=== PATIENT | female | born 1995 | race Caucasian/White ===

== ENCOUNTER 2018-03-20 07:02 | Emergency (ER) | payer OTHER ==
[~2018-03-20] VITALS: Ht 170.2 cm; Wt 97.5 kg
[2018-03-20] MEDS ORDERED: IV NORMAL SALINE 1000ML BAG 1,000 ML IV SCH (07:21)
--- NOTE | 2018-03-20 07:27 | PHYS DOC ---
Past Medical History Past Medical History: No Pertinent History Past Surgical History: Cholecystectomy, Tonsillectomy Additional Past Surgical Histo: hernia, ankle Alcohol Use: None Drug Use: None Adult General Chief Complaint Chief Complaint: NAUSEA/VOMITING/DIARRHA HPI HPI Patient is a 22-year-old female who presents to the emergency department for evaluation. She states that at about 3 PM yesterday afternoon, she had relatively sudden onset of a left-sided headache, accompanied by photophobia, and several episodes of vomiting. She has not had any fevers, chills, neck stiffness, vision changes, numbness, or weakness. She has not had any diarrhea or abdominal pain. She states that as a child she used to get migraine headaches , but has not had a headache in about 10 years. She is uncertain if the current headache is similar to her prior migraine headaches or not. She is not currently taking any migraine medication. She has seen headache doctor is in the past for headaches, however. There are no alleviating or exacerbating factors to the patient's symptoms, except as noted above. Review of Systems Review of Systems Constitutional: Denies fever or chills [] Eyes: Denies change in visual acuity, redness, or eye pain [] HENT: Denies nasal congestion or sore throat [] Respiratory: Denies cough or shortness of breath [] Cardiovascular: The patient denies any shortness of breath, chest pain, palpitations, or orthopnea [] GI: Denies abdominal pain, bloody stools or diarrhea [] : Denies dysuria or hematuria [] Musculoskeletal: Denies back pain or joint pain [] Integument: Denies rash or skin lesions [] Neurologic: Denies focal weakness or sensory changes [] Endocrine: Denies polyuria or polydipsia [] All other systems were reviewed and found to be within normal limits, except as documented in this note. Current Medications Current Medications Current Medications Medications (Trade) Dose Ordered Sig/Ti Start Time Stop Time Status Last Admin Dose Admin Diphenhydramine HCl (Benadryl) 50 mg 1X ONCE 03/20/18 07:30 03/20/18 07:31 DC 03/20/18 07:52 50 MG Ketorolac Tromethamine (Toradol 30mg Vial) 30 mg 1X ONCE 03/20/18 07:30 03/20/18 07:31 DC 03/20/18 07:52 30 MG Prochlorperazine Edisylate (Compazine) 10 mg 1X ONCE 03/20/18 07:30 03/20/18 07:31 DC 03/20/18 07:52 10 MG Sodium Chloride 1,000 ml @ 1,000 mls/hr Q1H 03/20/18 07:21 03/20/18 08:20 DC 03/20/18 07:52 1,000 MLS/HR Allergies Allergies Allergies Coded Allergies Type Severity Reaction Last Updated Verified No Known Drug Allergies 03/20/18 No Physical Exam Physical Exam PHYSICAL EXAM: CONSTITUTIONAL: Well developed, well nourished HEAD: normocephalic, atraumatic EENT: PERRL, EOMI. photophobia is present. Conjunctivae normal color, sclerae non-icteric; moist mucous membranes. NECK: Supple, non-tender; no meningismus. LUNGS: Lungs CTA, breathing even and unlabored. Normal air movement. HEART: Regular rate and rhythm, no murmur CHEST: No deformity; non-tender ABDOMEN: The abdomen is soft, and non-tender, no masses or bruits. EXTREM: Normal ROM; no deformity, no calf tenderness. Normal pulses palpable in all extremities. There is no pedal edema. SKIN: No rash; no diaphoresis NEURO: Alert; normal speech and cognition; CN's grossly intact; strength grossly intact without focal deficit. BACK: No CVA TTP. Current Patient Data Vital Signs Vital Signs Date Time Temp Pulse Resp B/P (MAP) Pulse Ox O2 Delivery O2 Flow Rate FiO2 03/20/18 07:05 97.5 82 18 117/77 (90) 100 Room Air 97.5 Lab Values Laboratory Tests Test 03/20/18 07:08 03/20/18 07:30 POC Urine HCG, Qualitative Hcg negative (Negative) White Blood Count 9.2 x10^3/uL (4.0-11.0) Red Blood Count 5.09 x10^6/uL (3.50-5.40) Hemoglobin 12.2 g/dL (12.0-15.5) Hematocrit 37.0 % (36.0-47.0) Mean Corpuscular Volume 73 fL (79-100) L Mean Corpuscular Hemoglobin 24 pg (25-35) L Mean Corpuscular Hemoglobin Concent 33 g/dL (31-37) Red Cell Distribution Width 14.9 % (11.5-14.5) H Platelet Count 163 x10^3/uL (140-400) Neutrophils (%) (Auto) 74 % (31-73) H Lymphocytes (%) (Auto) 18 % (24-48) L Monocytes (%) (Auto) 7 % (0-9) Eosinophils (%) (Auto) 1 % (0-3) Basophils (%) (Auto) 1 % (0-3) Neutrophils # (Auto) 6.8 x10^3uL (1.8-7.7) Lymphocytes # (Auto) 1.7 x10^3/uL (1.0-4.8) Monocytes # (Auto) 0.6 x10^3/uL (0.0-1.1) Eosinophils # (Auto) 0.1 x10^3/uL (0.0-0.7) Basophils # (Auto) 0.1 x10^3/uL (0.0-0.2) Sodium Level 140 mmol/L (136-145) Potassium Level 3.7 mmol/L (3.5-5.1) Chloride Level 104 mmol/L (98-107) Carbon Dioxide Level 25 mmol/L (21-32) Anion Gap 11 (6-14) Blood Urea Nitrogen 8 mg/dL (7-20) Creatinine 0.8 mg/dL (0.6-1.0) Estimated GFR (Cockcroft-Gault) 88.1 Glucose Level 103 mg/dL (70-99) H Calcium Level 9.5 mg/dL (8.5-10.1) Laboratory Tests 03/20/18 07:30 Laboratory Tests 03/20/18 07:30 EKG EKG [] Radiology/Procedures Radiology/Procedures [PROCEDURE: CT HEAD WO CONTRAST CT of the head without contrast, 03/20/2018: HISTORY: Headache, nausea and vomiting The ventricles are within normal limits in size. There is no shift of the midline structures. There is no evidence of acute intracranial hemorrhage or mass effect. IMPRESSION: No acute intracranial abnormality is detected. ] Course & Med Decision Making Course & Med Decision Making Pertinent Labs and Imaging studies reviewed. (See chart for details) [8:20 AM: The patient's condition has significantly improved. Her headache has almost completely resolved and she is feeling much better.I discussed doing a lumbar puncture with the patient. We discussed the limitations of CT in definitively ruling out subarachnoid hemorrhage, or ruling out meningitis, I discussed the potential life-threatening nature of these diagnoses. The patient expressed verbal understanding of the risks involved in potentially missing these diagnoses. After considering the risks/benefits of lumbar puncture, and answering all questions about the procedure, the patient declined to undergo a lumbar puncture. The patient was mentally competent, and all questions were addressed. I stressed the need to return to the emergency department for worsening symptoms, or if the patient is willing to undergo further evaluation. The patient expressed verbal understanding. ] The patient does have a primary care physician she follows up with and I encouraged her to arrange a follow-up appointment for further evaluation and treatment. Dragon Disclaimer Dragon Disclaimer This electronic medical record was generated, in whole or in part, using a voice recognition dictation system. Departure Departure Impression: Primary Impression: Migraine headache Disposition: 01 HOME, SELF-CARE Condition: STABLE Patient Instructions: Migraine Headache Scripts Sumatriptan Succinate (IMITREX) 50 Mg Tablet 1 TAB PO UD, #10 TAB 1 Refill 1 tablet at the onset of migraine headache. May repeat in one hour. Max 200 mg per 24 hours. Prov: CAROLINA DELGADILLO MD 03/20/18 CAROLINA DELGADILLO MD Mar 20, 2018 07:27
[2018-03-20] MEDS ORDERED: diphenhydrAMINE HCL 25 MG CAPSULE PO ONE (07:30)
[2018-03-20] MEDS ORDERED: KETOROLAC 30 MG/ML VIAL. IV ONE (07:30)
[2018-03-20] MEDS ORDERED: PROCHLORPERAZINE 10 MG/2 ML VIAL. IV ONE (07:30)
[2018-03-20 07:43] LABS: BASO # 0.1 x10^3/uL (0.0-0.2); BASO % 1 % (0-3); EOS # 0.1 x10^3/uL (0.0-0.7); EOS % 1 % (0-3); HEMOGLOBIN 12.2 g/dL (12.0-15.5); LYMPH # 1.7 x10^3/uL (1.0-4.8); LYMPH % 18 % (24-48); MEAN CORPUSCULAR HEMOGLOBIN 24 pg (25-35); MEAN CORPUSCULAR HGB CONC 33 g/dL (31-37); MEAN CORPUSCULAR VOLUME 73 fL (79-100); MONO # 0.6 x10^3/uL (0.0-1.1); MONO % 7 % (0-9); NEUT # 6.8 x10^3uL (1.8-7.7); NEUT % 74 % (31-73); PLATELET COUNT 163 x10^3/uL (140-400); RED BLOOD COUNT 5.09 x10^6/uL (3.50-5.40); RED CELL DISTRIBUTION WIDTH 14.9 % (11.5-14.5); WHITE BLOOD COUNT 9.2 x10^3/uL (4.0-11.0)
[2018-03-20 07:51] LABS: CALCIUM 9.5 mg/dL (8.5-10.1); CREATININE 0.8 mg/dL (0.6-1.0); GFR 88.1; POTASSIUM 3.7 mmol/L (3.5-5.1)
--- NOTE | 2018-03-20 08:02 | RAD ---
CT of the head without contrast, 03/20/2018: HISTORY: Headache, nausea and vomiting The ventricles are within normal limits in size. There is no shift of the midline structures. There is no evidence of acute intracranial hemorrhage or mass effect. IMPRESSION: No acute intracranial abnormality is detected. RS Compliance Statement: One or more of the following individualized dose reduction techniques were utilized for this examination: 1. Automated exposure control 2. Adjustment of the mA and/or kV according to patient size 3. Use of iterative reconstruction technique Electronically signed by: Silvano Anderson MD (03/20/2018 7:58 AM) [facility]
[2018-03-20 08:22] VITALS: BP 102/56
[2018-03-20] MEDS ORDERED: SUMA50TA3 PO (08:26)
== END 2018-03-20 08:36 | disposition home or self-care (01) ==
LOC: ER 07:02
DX: G43.909 Migraine, unspecified, not intractable, without status migrainosus (principal); R11.2 Nausea with vomiting, unspecified
CPT/HCPCS: 36415; 70450; 80048; 81025; 85025; 96361; 96374; 96375; 99284; J0780; J1885; J7030; Q0163

== ENCOUNTER 2019-10-13 14:24 | Emergency (ER) | payer OTHER ==
[~2019-10-13] VITALS: Ht 172.7 cm; Wt 111.0 kg
[~2019-10-13 14:24] MED LIST: SUMA50TA3 PO
[2019-10-13 14:37] VITALS: BP 144/100
[2019-10-13] MEDS ORDERED: NAPROXEN 500 MG TABLET PO STA (14:54)
--- NOTE | 2019-10-13 14:57 | PHYS DOC ---
Past Medical History Past Medical History: No Pertinent History Past Surgical History: Cholecystectomy, Tonsillectomy Additional Past Surgical Histo: UMBILICAL HERNIA, LEFT FOOT HARDWARE, club feet correction Smoking Status: Never Smoker Alcohol Use: None Drug Use: None General Adult EDM: Chief Complaint: FOOT INJURY PAIN HPI: HPI: Patient is a 24 year old female, accompanied by her significant other, who presents to the ER with complaints of left foot redness, pain, and swelling for the last week. She denies any known injury, numbness, tingling, drainage, or fever. Pt states that the pain is worse with weight bearing but is a constant throbbing sensation. She currently rates her pain a 8/10 on the pain she denies taking any medication for relief of her pain prior to arrival today. Review of Systems: Review of Systems: Constitutional: Denies fever or chills. [] Musculoskeletal: See HPI Integument: Denies rash; See HPI [] Neurologic: Denies headache, focal weakness or sensory changes. [] Psychiatric: Denies depression or anxiety. [] Heart Score: Risk Factors: Risk Factors: DM, Current or recent (<one month) smoker, HTN, HLP, family history of CAD, obesity. Risk Scores: Score 0 - 3: 2.5% MACE over next 6 weeks - Discharge Home Score 4 - 6: 20.3% MACE over next 6 weeks - Admit for Clinical Observation Score 7 - 10: 72.7% MACE over next 6 weeks - Early Invasive Strategies Allergies: Allergies: Allergies Coded Allergies Type Severity Reaction Last Updated Verified No Known Drug Allergies 03/20/18 No Physical Exam: PE: Constitutional: Well developed, well nourished, no acute distress, non-toxic appearance, obese. [] HENT: Normocephalic, atraumatic, bilateral external ears normal, nose normal. [] Eyes: PERRLA, EOMI, conjunctiva normal, no discharge. [] Neck: Normal range of motion, no stridor. [] Cardiovascular:Heart rate regular rhythm Lungs & Thorax: Respirations even and unlabored, no retractions, no respiratory distress Skin: Warm, dry; erythema, warmth, redness, and 1+ edema noted to left midfoot consistent with gouty arthritis Extremities: Left foot: No crepitus, no obvious deformity, no bruising, no cyanosis, ROM intact, 1+ edema and erythema to midfoot. Neurologic: Alert and oriented X 3, no focal deficits noted. [] Psychologic: Affect normal, judgement normal, mood normal. [] Current Patient Data: Vital Signs: Vital Signs Date Time Temp Pulse Resp B/P (MAP) Pulse Ox O2 Delivery O2 Flow Rate FiO2 10/13/19 14:37 98.8 94 18 144/100 (115) 96 Room Air 98.8 EKG: EKG: [] Radiology/Procedures: Radiology/Procedures: PROCEDURE: FOOT LEFT 3V Left foot x-rays 3 views HISTORY: Left foot pain and swelling for one week. History of prior bone grafting to the foot. FINDINGS: Bone demineralization may indicate osteopenia or osteoporosis. There is mild diffuse soft tissue edema and swelling of the foot. 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 Prominent posterior talus Stieda process. No fracture. No dislocation. No arthritic change. IMPRESSION: No acute osseous injury. Diffuse soft tissue edema and swelling. See above. [] Course & Med Decision Making: Course & Med Decision Making Pertinent Labs and Imaging studies reviewed. (See chart for details) [] Dragon Disclaimer: Dragon Disclaimer: This electronic medical record was generated, in whole or in part, using a voice recognition dictation system. Departure Departure Impression: Primary Impression: Acute gout of left foot Qualified Codes: M10.9 - Gout, unspecified Disposition: 01 HOME, SELF-CARE Condition: STABLE Referrals: MAEVE GARCIA MD (PCP) Patient Instructions: Diet - Purine Restricted, Gout, [id number] Additional Instructions: Fill the prescriptions and use them as directed. Follow the diet instructions provided. Follow-up with your primary care doctor if symptoms persist, return to the ER if symptoms worsen or you develop a fever. Scripts Prednisone (PREDNISONE) 50 Mg Tablet 1 TAB PO DAILY for 5 Days, #5 TAB 0 Refills Prov: BRENNAN PAULSON APRN 10/13/19 Naproxen (NAPROXEN) 500 Mg Tablet 1 TAB PO BID PRN for PAIN for 10 Days, #20 TAB 0 Refills Prov: BRENNAN PAULSON APRN 10/13/19 Justicifation of Admission Dx: Justifications for Admission: Justification of Admission Dx: N/A BRENNAN PAULSON APRN Oct 13, 2019 14:57
--- NOTE | 2019-10-13 15:14 | RAD ---
Left foot x-rays 3 views HISTORY: Left foot pain and swelling for one week. History of prior bone grafting to the foot. FINDINGS: Bone demineralization may indicate osteopenia or osteoporosis. There is mild diffuse soft tissue edema and swelling of the foot. 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 Prominent posterior talus Stieda process. No fracture. No dislocation. No arthritic change. IMPRESSION: No acute osseous injury. Diffuse soft tissue edema and swelling. See above. Electronically signed by: Vitaliy Ivy MD (10/13/2019 3:11 PM) [facility]
[2019-10-13] MEDS ORDERED: PRED50TA PO (16:14)
[2019-10-13] MEDS ORDERED: NAPR-514 PO (16:14)
== END 2019-10-13 16:23 | disposition home or self-care (01) ==
LOC: ER 14:24
DX: M10.9 Gout, unspecified (principal); M79.672 Pain in left foot; R20.0 Anesthesia of skin; R60.0 Localized edema; Z90.89 Acquired absence of other organs; Z90.49 Acquired absence of other specified parts of digestive tract; Z98.890 Other specified postprocedural states
CPT/HCPCS: 73630; 81025; 99283

== ENCOUNTER → 2020-07-14 | Outpatient (CLI) | payer OTHER ==
[~2020-07-14] MED LIST changes: +NAPR-514 PO; +PRED50TA PO
[2020-07-14 11:30] LABS: HEMOGLOBIN 10.5 g/dL (12.0-15.5); RED BLOOD COUNT 4.99 x10^6/uL (3.50-5.40); RED CELL DISTRIBUTION WIDTH 16.7 % (11.5-14.5); WHITE BLOOD COUNT 6.7 x10^3/uL (4.0-11.0)
[2020-07-14 11:57] LABS: FREE T4 0.97 ng/dL (0.76-1.46); THYROID STIM HORMONE (TSH) 0.382 uIU/mL (0.358-3.74)
[2020-07-15 17:19] LABS: RUBELLA IGG ANTIBODY 2.76 index (Immune >0.99)
== END ==
LOC: LAB 10:54
PROVIDERS: ATTEND Obstetrics & Gynecology
DX: Z34.91 Encounter for supervision of normal pregnancy, unspecified, first trimester (principal); Z3A.00 Weeks of gestation of pregnancy not specified
CPT/HCPCS: 36415; 84439; 84443; 85027; 86592; 86703; 86762; 86787; 86803; 86850; 86900; 86901; 87340

== ENCOUNTER → 2020-07-14 | Outpatient (CLI) | payer OTHER | LOC: SPEC 10:21 | PROVIDERS: ATTEND Obstetrics & Gynecology | DX: Z34.91 Encounter for supervision of normal pregnancy, unspecified, first trimester (principal); Z3A.00 Weeks of gestation of pregnancy not specified | CPT/HCPCS: 87086; 87491; 87591 ==

== ENCOUNTER 2020-07-21 13:31 | Emergency (ER) | payer OTHER ==
[~2020-07-21] VITALS: Ht 175.3 cm; Wt 112.0 kg
[2020-07-21 14:30] LABS: BASO # 0.1 x10^3/uL (0.0-0.2); BASO % 1 % (0-3); EOS # 0.2 x10^3/uL (0.0-0.7); EOS % 2 % (0-3); HEMATOCRIT 33.8 % (36.0-47.0); HEMOGLOBIN 10.7 g/dL (12.0-15.5); LYMPH # 2.9 x10^3/uL (1.0-4.8); LYMPH % 34 % (24-48); MEAN CORPUSCULAR HEMOGLOBIN 21 pg (25-35); MEAN CORPUSCULAR HGB CONC 32 g/dL (31-37); MEAN CORPUSCULAR VOLUME 67 fL (79-100); MONO # 0.7 x10^3/uL (0.0-1.1); MONO % 9 % (0-9); NEUT # 4.6 x10^3/uL (1.8-7.7); NEUT % 54 % (31-73); PLATELET COUNT 190 x10^3/uL (140-400); RED BLOOD COUNT 5.04 x10^6/uL (3.50-5.40); RED CELL DISTRIBUTION WIDTH 17.3 % (11.5-14.5); WHITE BLOOD COUNT 8.6 x10^3/uL (4.0-11.0)
[2020-07-21 14:47] LABS: BILIRUBIN,URINE NEGATIVE (NEG); CLARITY,URINE CLEAR; COLOR,URINE YELLOW; NITRITE,URINE NEGATIVE (NEG); PROTEIN,URINE NEGATIVE (NEG-TRACE); UROBILINOGEN,URINE 0.2 mg/dL (0.2 mg/dL)
[2020-07-21 14:55] LABS: BACTERIA,URINE MODERATE /HPF (0-FEW)
--- NOTE | 2020-07-21 15:38 | RAD ---
Obstetric ultrasound less than 14 weeks with transvaginal imaging: Reason for examination: Vaginal bleeding and . Transabdominally, the uterus and adnexa are poorly visualized since the bladder is empty. Transvaginally, the uterus measures 9 x 7 x 7 cm in greatest dimension. There does appear to be a axel rine fibroid in the left side of the uterus measuring 4.8 x 3.6 cm in greatest dimension. Single viab le intrauterine gestation is identified with a cardiac rate of 66 bpm. Yolk sac is identified. The ou ter chorion and in the amnion are visible. There is a normal contour to the gestational sac. Subchori onic hemorrhage is not identified. [place]-rump length is 4.7 mm corresponding to gestational age of 6 weeks 1 day. The right ovary measures 2.7 x 1.8 x 2.1 cm in greatest dimension and shows good vascular flow. The left ovary is not identified. No free fluid is seen. IMPRESSION: Single viable intrauterine gestation with a mean gestational age of 6 weeks 1 day and an estimated da te of confinement of 03/15/2021. This is approximately 13 days younger than clinical dates. 4.8 x 3.6 cm fibroid in the left side of the uterus. Electronically signed by: Gypsy Garcia MD (07/21/2020 3:36 PM) [facility]
[2020-07-21 15:45] VITALS: BP 115/75
[2020-07-21 15:54] LABS: PLT ESTIMATE ADEQUATE (ADEQUATE)
[2020-07-21 15:55] LABS: ANISOCYTOSIS SLIGHT; HYPOCHROMIA MOD; MICROCYTOSIS MOD; POIKILOCYTOSIS SLIGHT
[2020-07-21 15:56] LABS: OVALOCYTES FEW
--- NOTE | 2020-07-21 16:03 | ED.ADGEN ---
Past Medical History Past Medical History: Anxiety, Depression Past Surgical History: Cholecystectomy, Tonsillectomy Additional Past Surgical Histo: UMBILICAL HERNIA, LEFT FOOT HARDWARE, club feet correction Smoking Status: Never Smoker Alcohol Use: None Drug Use: None General Adult EDM: Chief Complaint: VAGINAL BLEEDING HPI: HPI: Patient is a 25 year old female, accompanied by her , who presents emergency department with complaints of vaginal bleeding and passing a dime sized blood clot approximately 30 minutes prior to arrival. Patient reports she is currently 5 weeks , she is 2, para 1. Her last menstrual cycle was on May 26, 2020. She denies any abnormal vaginal discharge prior to the onset of the bleeding. She denies any dysuria, hematuria, increased urinary frequency, fever, cough, back pain, abdominal pain, cough, shortness of breath, nausea, vomiting, or diarrhea. Patient reports concerned that she is having a miscarriage is tearful and crying. Currently denies any pain. Review of Systems: Review of Systems: Complete ROS is negative unless otherwise noted in HPI. Allergies: Allergies: Allergies Coded Allergies Type Severity Reaction Last Updated Verified No Known Drug Allergies 03/20/18 No Physical Exam: PE: See Above Constitutional: Well developed, well nourished, no acute distress, non-toxic appearance, obese. [] HENT: Normocephalic, atraumatic, bilateral external ears normal, nose normal. [] Eyes: PERRLA, EOMI, conjunctiva normal, no discharge. [] Neck: Normal range of motion, no stridor. [] Cardiovascular:Heart rate regular rhythm Lungs & Thorax: Respirations even and unlabored, no retractions, no respiratory distress Abdomen: soft, no tenderness Skin: Warm, dry, no erythema, no rash. [] Extremities: No cyanosis, ROM intact, no edema. [] Neurologic: Alert and oriented X 3, no focal deficits noted. [] Psychologic: Affect anxious judgement normal, mood normal. [] Current Patient Data: Labs: Laboratory Tests Test 07/21/20 14:19 07/21/20 14:35 White Blood Count 8.6 x10^3/uL (4.0-11.0) Red Blood Count 5.04 x10^6/uL (3.50-5.40) Hemoglobin 10.7 g/dL (12.0-15.5) L Hematocrit 33.8 % (36.0-47.0) L Mean Corpuscular Volume 67 fL (79-100) L Mean Corpuscular Hemoglobin 21 pg (25-35) L Mean Corpuscular Hemoglobin Concent 32 g/dL (31-37) Red Cell Distribution Width 17.3 % (11.5-14.5) H Platelet Count 190 x10^3/uL (140-400) Neutrophils (%) (Auto) 54 % (31-73) Lymphocytes (%) (Auto) 34 % (24-48) Monocytes (%) (Auto) 9 % (0-9) Eosinophils (%) (Auto) 2 % (0-3) Basophils (%) (Auto) 1 % (0-3) Neutrophils # (Auto) 4.6 x10^3/uL (1.8-7.7) Lymphocytes # (Auto) 2.9 x10^3/uL (1.0-4.8) Monocytes # (Auto) 0.7 x10^3/uL (0.0-1.1) Eosinophils # (Auto) 0.2 x10^3/uL (0.0-0.7) Basophils # (Auto) 0.1 x10^3/uL (0.0-0.2) Platelet Estimate Pending Maternal Serum HCG Beta Subunit 87914 mIU/mL (0-5) H Urine Collection Type Unknown Urine Color Yellow Urine Clarity Clear Urine pH 6.0 (<5.0-8.0) Urine Specific [place] 1.015 (1.000-1.030) Urine Protein Negative mg/dL (NEG-TRACE) Urine Glucose (UA) Negative mg/dL (NEG) Urine Ketones (Stick) Negative mg/dL (NEG) Urine Blood Large (NEG) Urine Nitrite Negative (NEG) Urine Bilirubin Negative (NEG) Urine Urobilinogen Dipstick 0.2 mg/dL (0.2 mg/dL) Urine Leukocyte Esterase Trace (NEG) Urine RBC 3-5 /HPF (0-2) Urine WBC 1-4 /HPF (0-4) Urine Squamous Epithelial Cells Mod /LPF Urine Bacteria Moderate /HPF (0-FEW) Urine Mucus Mod /LPF POC Urine HCG, Qualitative Hcg positive (Negative) Laboratory Tests 07/21/20 14:19 Vital Signs: Vital Signs Date Time Temp Pulse Resp B/P (MAP) Pulse Ox O2 Delivery O2 Flow Rate FiO2 07/21/20 13:41 98.6 94 18 140/70 (93) 100 Room Air 98.6 EKG: EKG: [] Heart Score: C/O Chest Pain: No Risk Scores: Score 0 - 3: 2.5% MACE over next 6 weeks - Discharge Home Score 4 - 6: 20.3% MACE over next 6 weeks - Admit for Clinical Observation Score 7 - 10: 72.7% MACE over next 6 weeks - Early Invasive Strategies Radiology/Procedures: Radiology/Procedures: PROCEDURE: OB <14 WKS W/TV Obstetric ultrasound less than 14 weeks with transvaginal imaging: Reason for examination: Vaginal bleeding and . Transabdominally, the uterus and adnexa are poorly visualized since the bladder is empty. Transvaginally, the uterus measures 9 x 7 x 7 cm in greatest dimension. There does appear to be a uterine fibroid in the left side of the uterus measuring 4.8 x 3.6 cm in greatest dimension. Single viable intrauterine gestation is identified with a cardiac rate of 66 bpm. Yolk sac is identified. The outer chorion and in the amnion are visible. There is a normal contour to the gestational sac. Subchorionic hemorrhage is not identified. [place]-rump length is 4.7 mm corresponding to gestational age of 6 weeks 1 day. The right ovary measures 2.7 x 1.8 x 2.1 cm in greatest dimension and shows good vascular flow. The left ovary is not identified. No free fluid is seen. IMPRESSION: Single viable intrauterine gestation with a mean gestational age of 6 weeks 1 day and an estimated date of confinement of 03/15/2021. This is approximately 13 days younger than clinical dates. 4.8 x 3.6 cm fibroid in the left side of the uterus. Electronically signed by: Gypsy Garcia MD (07/21/2020 3:36 PM) [facility] [] Course & Med Decision Making: Course & Med Decision Making Pertinent Labs and Imaging studies reviewed. (See chart for details) Patient is a 25-year-old female who presents emergency department complaints of vaginal bleeding during . Work-up includes labs and ultrasound. CBC reveals mild anemia with a hemoglobin of 10.7, hematocrit of 33.8; UA reveals a large amount of blood, 1-4 white blood cells, moderate squames, likely contaminated. Patient is Rh+ per blood bank history. hCG level was 16,321. Ultrasound revealed: Single viable intrauterine gestation with a mean gestational age of 6 weeks 1 day and an estimated date of confinement of 03/15/2021. This is approximately 13 days younger than clinical dates. 4.8 x 3.6 cm fibroid in the left side of the uterus. Dragon Disclaimer: Dragon Disclaimer: This electronic medical record was generated, in whole or in part, using a voice recognition dictation system. Departure Departure Impression: Primary Impression: First trimester bleeding Additional Impression: Threatened in first trimester Disposition: 01 DC HOME SELF CARE/HOMELESS Condition: STABLE Referrals: MAEVE GARCIA MD (PCP) FAUSTINO SCHROEDER MD Patient Instructions: Threatened Miscarriage, [id number], Vaginal Bleeding During , First Trimester Additional Instructions: Do not put anything into your vagina, pelvic rest until follow-up with Dr. Schroeder. You need to be reevaluated by Dr. Schroeder in the next 1 to 2 days to have a repeat hCG level drawn. Your hCG level today was 16,321. Return to the ER if your symptoms worsen. Problem Qualifiers BRENNAN PAULSON APRN Jul 21, 2020 16:03
== END 2020-07-21 16:17 | disposition home or self-care (01) ==
LOC: ER 13:31
DX: O20.0 Threatened abortion (principal); F41.9 Anxiety disorder, unspecified; F32.9 Major depressive disorder, single episode, unspecified; Z90.49 Acquired absence of other specified parts of digestive tract; Z98.890 Other specified postprocedural states; Z90.89 Acquired absence of other organs; Z3A.01 Less than 8 weeks gestation of pregnancy
CPT/HCPCS: 36415; 76801; 76817; 81001; 81025; 84702; 85025; 87086; 99284

== ENCOUNTER 2020-07-27 09:47 | Emergency (ER) | payer OTHER ==
[~2020-07-27] VITALS: Ht 175.3 cm; Wt 112.7 kg
[2020-07-27 09:57] VITALS: BP 133/87
[2020-07-27 10:24] LABS: BASO # 0.1 x10^3/uL (0.0-0.2); BASO % 1 % (0-3); EOS # 0.2 x10^3/uL (0.0-0.7); EOS % 2 % (0-3); HEMOGLOBIN 10.8 g/dL (12.0-15.5); LYMPH # 2.1 x10^3/uL (1.0-4.8); LYMPH % 27 % (24-48); MEAN CORPUSCULAR HEMOGLOBIN 21 pg (25-35); MEAN CORPUSCULAR HGB CONC 32 g/dL (31-37); MEAN CORPUSCULAR VOLUME 67 fL (79-100); MONO # 0.6 x10^3/uL (0.0-1.1); MONO % 8 % (0-9); NEUT # 4.8 x10^3/uL (1.8-7.7); NEUT % 62 % (31-73); PLATELET COUNT 230 x10^3/uL (140-400); RED CELL DISTRIBUTION WIDTH 17.2 % (11.5-14.5); WHITE BLOOD COUNT 7.7 x10^3/uL (4.0-11.0)
[2020-07-27 10:25] LABS: BILIRUBIN,URINE NEGATIVE (NEG); COLOR,URINE YELLOW; NITRITE,URINE NEGATIVE (NEG); PH,URINE 5.5 (<5.0-8.0); PROTEIN,URINE NEGATIVE (NEG-TRACE); UROBILINOGEN,URINE 0.2 mg/dL (0.2 mg/dL)
[2020-07-27 10:27] LABS: CLARITY,URINE HAZY
[2020-07-27 10:38] LABS: BACTERIA,URINE MANY /HPF (0-FEW)
[2020-07-27 10:42] LABS: PLT ESTIMATE ADEQUATE (ADEQUATE)
[2020-07-27 10:43] LABS: HYPOCHROMIA SLIGHT; POLYCHROMASIA SLIGHT
[2020-07-27 10:45] LABS: ANISOCYTOSIS SLIGHT; MICROCYTOSIS MOD; OVALOCYTES FEW; TEAR DROP CELLS OCC
--- NOTE | 2020-07-27 10:53 | ED.ADGEN ---
Past Medical History Past Medical History: Anxiety, Depression Past Surgical History: Cholecystectomy, Tonsillectomy Additional Past Surgical Histo: UMBILICAL HERNIA, LEFT FOOT HARDWARE, club feet correction Smoking Status: Never Smoker Alcohol Use: None Drug Use: None General Adult EDM: Chief Complaint: VAGINAL BLEEDING HPI: HPI: Patient is a 25 year old female, who presents emergency department with complaints of continued intermittent vaginal bleeding and passing of small blood clots since being evaluated here last week. Patient reports she is currently 6 weeks , she is 2, para 1. Her last menstrual cycle was on May 26, 2020. She denies any abnormal vaginal discharge prior to the onset of the bleeding. She denies any dysuria, hematuria, increased urinary frequency, fever, cough, back pain, abdominal pain, cough, shortness of breath, nausea, vomiting, or diarrhea. Patient reports concerned that she is having a miscarriage, she currently denies any pain. Pt states that she followed up with her HEAD TRANSFER CLERK Dr. Schroeder last week who did another US in the office, he did not recheck her HCG level. She called the office this morning and was advised to go to the ER. Review of Systems: Review of Systems: Complete ROS is negative unless otherwise noted in HPI. Allergies: Allergies: Allergies Coded Allergies Type Severity Reaction Last Updated Verified No Known Drug Allergies 03/20/18 No Physical Exam: PE: See Above Constitutional: Well developed, well nourished, no acute distress, non-toxic appearance, obese. [] HENT: Normocephalic, atraumatic, bilateral external ears normal, nose normal. [] Eyes: PERRLA, EOMI, conjunctiva normal, no discharge. [] Neck: Normal range of motion, no stridor. [] Cardiovascular:Heart rate regular rhythm Lungs & Thorax: Respirations even and unlabored, no retractions, no respiratory distress Skin: Warm, dry, no erythema, no rash. [] Extremities: No cyanosis, ROM intact, no edema. [] Neurologic: Alert and oriented X 3, no focal deficits noted. [] Psychologic: Affect normal, judgement normal, mood normal. [] Current Patient Data: Labs: Laboratory Tests Test 07/27/20 06:52 07/27/20 09:53 07/27/20 10:07 Urine Collection Type Void Urine Color Yellow Urine Clarity Hazy Urine pH 5.5 (<5.0-8.0) Urine Specific [place] 1.025 (1.000-1.030) Urine Protein Negative mg/dL (NEG-TRACE) Urine Glucose (UA) Negative mg/dL (NEG) Urine Ketones (Stick) Negative mg/dL (NEG) Urine Blood Large (NEG) Urine Nitrite Negative (NEG) Urine Bilirubin Negative (NEG) Urine Urobilinogen Dipstick 0.2 mg/dL (0.2 mg/dL) Urine Leukocyte Esterase Moderate (NEG) Urine RBC 6-10 /HPF (0-2) Urine WBC 11-20 /HPF (0-4) Urine Squamous Epithelial Cells Many /LPF Urine Bacteria Many /HPF (0-FEW) Urine Mucus Marked /LPF POC Urine HCG, Qualitative Hcg positive (Negative) White Blood Count 7.7 x10^3/uL (4.0-11.0) Red Blood Count 5.10 x10^6/uL (3.50-5.40) Hemoglobin 10.8 g/dL (12.0-15.5) L Hematocrit 34.0 % (36.0-47.0) L Mean Corpuscular Volume 67 fL (79-100) L Mean Corpuscular Hemoglobin 21 pg (25-35) L Mean Corpuscular Hemoglobin Concent 32 g/dL (31-37) Red Cell Distribution Width 17.2 % (11.5-14.5) H Platelet Count 230 x10^3/uL (140-400) Neutrophils (%) (Auto) 62 % (31-73) Lymphocytes (%) (Auto) 27 % (24-48) Monocytes (%) (Auto) 8 % (0-9) Eosinophils (%) (Auto) 2 % (0-3) Basophils (%) (Auto) 1 % (0-3) Neutrophils # (Auto) 4.8 x10^3/uL (1.8-7.7) Lymphocytes # (Auto) 2.1 x10^3/uL (1.0-4.8) Monocytes # (Auto) 0.6 x10^3/uL (0.0-1.1) Eosinophils # (Auto) 0.2 x10^3/uL (0.0-0.7) Basophils # (Auto) 0.1 x10^3/uL (0.0-0.2) Platelet Estimate Adequate (ADEQUATE) Large Platelets Few Giant Platelets Occ Polychromasia Slight Hypochromasia Slight Anisocytosis Slight Microcytosis Mod Tear Drop Cells Occ Ovalocytes Few Maternal Serum HCG Beta Subunit 44043 mIU/mL (0-5) H Laboratory Tests 07/27/20 10:07 Vital Signs: Vital Signs Date Time Temp Pulse Resp B/P (MAP) Pulse Ox O2 Delivery O2 Flow Rate FiO2 07/27/20 09:57 98.4 107 25 133/87 (102) 97 Room Air 98.4 EKG: EKG: [] Heart Score: C/O Chest Pain: No Risk Scores: Score 0 - 3: 2.5% MACE over next 6 weeks - Discharge Home Score 4 - 6: 20.3% MACE over next 6 weeks - Admit for Clinical Observation Score 7 - 10: 72.7% MACE over next 6 weeks - Early Invasive Strategies Radiology/Procedures: Radiology/Procedures: PROCEDURE: OB <14 WKS W/TV US OB <14 WKS +TV Clinical Indication: Reason: vag bleed / Comparison: Obstetric ultrasound, less than 14 weeks July 21, 2020. TECHNIQUE: Real-time ultrasound imaging of the pelvis using transabdominal and transvaginal window is performed. Findings: Uterus measures 9 x 7 x 7 cm. There is a fibroid of the left uterus measuring 5 x 4.1 cm x 3.9. There is intrauterine gestational sac. The gestational sac contains a pole and yolk sac. [place]-rump length 0.4 cm, 6 weeks and 1 day. heart tones are not detected. The age based on LMP is 8 weeks and 6 days. The maternal ovaries demonstrate normal blood flow. There is a left ovary functional cyst measuring up to 1.4 cm. No evidence of adnexal mass. No pelvic free fluid is identified. IMPRESSION: 1. heart tones are not detected suggesting failed first trimester . 2. Fibroid uterus. [] Course & Med Decision Making: Course & Med Decision Making Pertinent Labs and Imaging studies reviewed. (See chart for details) 1110-Dr. Schroeder at bedside to speak with the patient. Patient advised is that her hCG level dropped from 16,321-10,940. Patient is likely having a miscarriage. Dr. Schroeder discussed surgery versus going home with the patient. Patient stated that she would like to go home and think about things. Dr. Schroeder advised the patient to follow-up with his office in 1 week, call the office to day to make an appointment for the 1120-I advised the patient to return to the ER if her symptoms worsened or fever developed, follow-up with Dr. Schroeder as instructed. Patient verbalized an understanding of home care, medications, follow-up, and return to ED instructions and was in agreement with the plan of care. [] I have reviewed the PA/H[employer] TE[employer]ER's note and Plan of Care. I was available for consultation as needed during the patient's visit in the emergency department. I agree with the clinical impression, plans and disposition. Dragon Disclaimer: Dragon Disclaimer: This electronic medical record was generated, in whole or in part, using a voice recognition dictation system. Departure Departure Impression: Primary Impression: Threatened in first trimester Additional Impression: First trimester bleeding Disposition: 01 DC HOME SELF CARE/HOMELESS Condition: STABLE Referrals: MAEVE GARCIA MD (PCP) FAUSTINO SCHROEDER MD Patient Instructions: Threatened Miscarriage, [id number] Additional Instructions: Call Dr. Schroeder's office this afternoon to schedule an appointment for August 03, 2020. He can take Tylenol as needed for pain. Return to the ER if your symptoms worsen or fever develops. Problem Qualifiers BRENNAN PAULSON APRN Jul 27, 2020 10:53 REYNA GALVAN DO Jul 27, 2020 12:09
--- NOTE | 2020-07-27 11:46 | RAD ---
US OB <14 WKS +TV Clinical Indication: Reason: vag bleed / Comparison: Obstetric ultrasound, less than 14 weeks July 21, 2020. TECHNIQUE: Real-time ultrasound imaging of the pelvis using transabdominal and transvaginal window is performed. Findings: Uterus measures 9 x 7 x 7 cm. There is a fibroid of the left uterus measuring 5 x 4.1 cm x 3.9. There is intrauterine gestational sac. The gestational sac contains a pole and yolk sac. [place]-rump length 0.4 cm, 6 weeks and 1 day. heart tones are not detected. The age based on LMP is 8 weeks and 6 days. The maternal ovaries demonstrate normal blood flow. There is a left ovary functional cyst measuring u p to 1.4 cm. No evidence of adnexal mass. No pelvic free fluid is identified. IMPRESSION: 1. heart tones are not detected suggesting failed first trimester . 2. Fibroid uterus. Electronically signed by: Jose Lam MD (07/27/2020 11:43 AM) [id number]
== END 2020-07-27 11:28 | disposition home or self-care (01) ==
LOC: ER 09:47
DX: O20.0 Threatened abortion (principal); F41.9 Anxiety disorder, unspecified; F32.9 Major depressive disorder, single episode, unspecified; Z90.49 Acquired absence of other specified parts of digestive tract; Z90.89 Acquired absence of other organs; Z98.890 Other specified postprocedural states; Z3A.08 8 weeks gestation of pregnancy
CPT/HCPCS: 36415; 76801; 76817; 81001; 81025; 84702; 85025; 87086; 99284

== ENCOUNTER → 2020-08-04 | Outpatient (CLI) | payer OTHER ==
[2020-07-27 09:57] VITALS: BP 133/87
== END ==
LOC: LAB 09:33
PROVIDERS: ATTEND Obstetrics & Gynecology
DX: O02.1 Missed abortion (principal)
CPT/HCPCS: 36415; 84702

== ENCOUNTER → 2020-09-04 | Outpatient (CLI) | payer OTHER ==
[2020-09-04 11:34] LABS: HEMOGLOBIN 9.6 g/dL (12.0-15.5); RED BLOOD COUNT 4.75 x10^6/uL (3.50-5.40); RED CELL DISTRIBUTION WIDTH 17.6 % (11.5-14.5); WHITE BLOOD COUNT 6.2 x10^3/uL (4.0-11.0)
== END ==
LOC: LAB 11:21
PROVIDERS: ATTEND Obstetrics & Gynecology
DX: O02.1 Missed abortion (principal)
CPT/HCPCS: 36415; 84702; 85027

== ENCOUNTER 2021-02-11 18:52 | Emergency (ER) | payer OTHER ==
[~2021-02-11] VITALS: Ht 175.3 cm; Wt 104.5 kg
[2021-02-11 20:20] VITALS: BP 153/96
[2021-02-11] MEDS ORDERED: IBUPROFEN 200 MG TABLET. PO ONE (20:45)
--- NOTE | 2021-02-11 20:45 | PHYS DOC ---
Past Medical History Past Medical History: Anxiety, Depression (NIKOLAY HIGGINS KEYSMITH) Past Surgical History: Cholecystectomy, Tonsillectomy Additional Past Surgical Histo: UMBILICAL HERNIA, LEFT FOOT HARDWARE, club feet correction (NIKOLAY HIGGINS KEYSMITH) Smoking Status: Never Smoker Alcohol Use: None Drug Use: None (NIKOLAY HIGGINS APRN) General Adult EDM: Chief Complaint: HAND PROBLEM HPI: HPI: Patient is a 25 year old female who presents with states she had rollerskating on it was trying to water skate and fell injuring her left thumb. She states she heard a crack. She has bruising to her thumb. This happened at 1830 tonight. She states she cannot bend it. She did not take anything for pain. She rates her pain a 9 out of 10. Patient has a history of depression, anxiety, cholecystectomy, umbilical hernia, clubfeet correction, tonsillectomy. (NIKOLAY HIGGINS KEYSMITH) Review of Systems: Review of Systems: Constitutional: Denies fever or chills. [] Eyes: Denies change in visual acuity. [] HENT: Denies nasal congestion or sore throat. [] Respiratory: Denies cough or shortness of breath. [] Cardiovascular: Denies chest pain or edema. [] GI: Denies abdominal pain, nausea, vomiting, bloody stools or diarrhea. [] : Denies dysuria. [] Musculoskeletal: Denies back pain or + left thumb joint pain. [] Integument: Denies rash. + Left thumb bruising [] Neurologic: Denies headache, focal weakness or sensory changes. [] Endocrine: Denies polyuria or polydipsia. [] Lymphatic: Denies swollen glands. [] Psychiatric: Denies depression or anxiety. [] (NIKOLAY HIGGINS KEYSMITH) Heart Score: C/O Chest Pain: No (NIKOLAY HIGGINS APRN) Current Medications: Current Medications Medications (Trade) Dose Ordered Sig/Ti Start Time Stop Time Status Last Admin Dose Admin Ibuprofen (Motrin) 600 mg 1X ONCE 02/11/21 20:45 02/11/21 20:46 UNV (NIKOLAY HIGGINS KEYSMITH) Allergies: Allergies: Allergies Coded Allergies Type Severity Reaction Last Updated Verified No Known Drug Allergies 03/20/18 No (NIKOLAY HIGGINS APRN) Physical Exam: PE: Constitutional: Well developed, well nourished, no acute distress, non-toxic appearance. [] HENT: Normocephalic, atraumatic, bilateral external ears normal, oropharynx moist, no oral exudates, nose normal. [] Eyes: PERRLA, EOMI, conjunctiva normal, no discharge. [] Neck: Normal range of motion, no tenderness, supple, no stridor. [] Cardiovascular:Heart rate regular rhythm, no murmur [] Lungs & Thorax: Bilateral breath sounds clear to auscultation [] Abdomen: Bowel sounds normal, soft, no tenderness, no masses, no pulsatile masses. [] Skin: Warm, dry, no erythema, no rash. Left thumb bruising [] Back: No tenderness, no CVA tenderness. [] Extremities: Left thumb tenderness, no cyanosis, no clubbing, left thumb ROM not intact, 1+edema. [] Neurologic: Alert and oriented X 3, normal motor function, normal sensory function, no focal deficits noted. [] Psychologic: Affect normal, judgement normal, mood normal. [] (NIKOLAY HIGGINS APRN) Current Patient Data: Vital Signs: Vital Signs Date Time Temp Pulse Resp B/P (MAP) Pulse Ox O2 Delivery O2 Flow Rate FiO2 02/11/21 20:20 98.2 70 16 153/96 (115) 100 Room Air 98.2 (NIKOLAY HIGGINS APRN) EKG: EKG: [] (NIKOLAY HIGGINS APRN) Radiology/Procedures: Radiology/Procedures: [] Impression: [facility] [address] [place], [place] [id number] IMAGING REPORT Signed PATIENT: EARNEST ROWE ACCOUNT: [id number] : 1995 LOCATION: ER AGE: 25 SEX: F EXAM STATUS: REG ER ORD. PHYSICIAN: NIKOLAY HIGGINS APRN REASON: thumb brusing after fall PROCEDURE: HAND LEFT 3V EXAM: PA, oblique and lateral views of the left hand DATE: 02/11/2021 8:56 PM INDICATION: Reason: thumb brusing after fall / Spl. Instructions: / History: . COMPARISON: No Prior FINDINGS/ IMPRESSION: Transverse fracture through the distal phalanx left thumb is nondisplaced. Joint spaces are preserved without significant degenerative/proliferative change. Swelling about the left thumb Electronically signed by: Nabor Valverde MD (02/11/2021 9:40 PM) [facility] DI[facility]ATED and SIGNED BY: NABOR VALVERDE MD DATE: 02/11/21 [id number] (NIKOLAY HIGGINS APRN) Course & Med Decision Making: Course & Med Decision Making Pertinent Labs and Imaging studies reviewed. (See chart for details) See HPI. Alert and oriented x4. Ambulatory steady gait. Speaks in full clear sentences. Full range of motion of the wrist. Radial pulses are present. Cap refill less than 2 seconds. Left thumb is bruised. 1+ swelling. Cannot bend at any other joints. No damage to the nailbed. No laceration. No joint deformity. No joint laxity. Range of motion not intact. Sensation intact. Patient placed in thumb spica. Patient follow-up with orthopedics. Splint assessment: Neurovascularly intact post splint replacement with good fit. Patient's extremity symptoms have stabilized well they have been evaluated in the department and are appropriate for outpatient follow-up. No evidence of compartment syndrome, neurologic injury, vascular injury, open joint, open fracture, tendon laceration, or foreign body. [] (NIKOLAY HIGGINS APRN) Course & Med Decision Making I have participated in the care of this patient and I have reviewed and agree with all pertinent clinical information above including history, exam, and recommendations. Alissa Duenas DO (ALISSA DUENAS DO) Bonnie Disclaimer: Bonnie Disclaimer: This electronic medical record was generated, in whole or in part, using a voice recognition dictation system. (NIKOLAY HIGGINS APRN) Departure Departure Impression: Primary Impression: Thumb fracture Qualified Codes: S62.502A - Fracture of unspecified phalanx of left thumb, initial encounter for closed fracture Disposition: HOME / SELF CARE / HOMELESS Condition: STABLE Referrals: MAEVE GARCIA MD (PCP) FAUSTINO DE LA PAZ DO Patient Instructions: Thumb Fracture Additional Instructions: Follow-up with orthopedic or your primary care provider to make sure that the thumb heals appropriately. Use ice and elevation to help with pain and swelling. Take ibuprofen for your pain. NIKOLAY HIGGINS APRN Feb 11, 2021 20:45 ALISSA DUENAS DO Feb 12, 2021 00:16
--- NOTE | 2021-02-11 21:42 | RAD ---
EXAM: PA, oblique and lateral views of the left hand DATE: 02/11/2021 8:56 PM INDICATION: Reason: thumb brusing after fall / Spl. Instructions: / History: . COMPARISON: No Prior FINDINGS/ IMPRESSION: Transverse fracture through the distal phalanx left thumb is nondisplaced. Joint spaces are preserved without significant degenerative/proliferative change. Swelling about the left thumb Electronically signed by: Nabor Barriga MD (02/11/2021 9:40 PM) LEVI
== END 2021-02-11 22:34 | disposition home or self-care (01) ==
LOC: ER 18:52
DX: S62.525A Nondisplaced fracture of distal phalanx of left thumb, initial encounter for closed fracture (principal); V00.131A Fall from skateboard, initial encounter; Y93.51 Activity, roller skating (inline) and skateboarding; Y92.89 Other specified places as the place of occurrence of the external cause; Y99.8 Other external cause status
CPT/HCPCS: 29125; 73130; 99284

== ENCOUNTER → 2021-05-04 | Outpatient (CLI) | payer OTHER | LOC: LAB 14:54 | PROVIDERS: ATTEND Internal Medicine Pulmonary Disease | DX: R51.9 Headache, unspecified (principal); J02.9 Acute pharyngitis, unspecified; M79.10 Myalgia, unspecified site; Z20.822 Contact with and (suspected) exposure to COVID-19 | CPT/HCPCS: U0003; U0005 ==

== ENCOUNTER → 2021-05-25 | Outpatient (CLI) | payer OTHER | LOC: LAB 08:16 | PROVIDERS: ATTEND Family Medicine | DX: O20.9 Hemorrhage in early pregnancy, unspecified (principal) | CPT/HCPCS: 36415; 84702 ==

== ENCOUNTER → 2021-05-27 | Outpatient (CLI) | payer OTHER | LOC: LAB 08:05 | PROVIDERS: ATTEND Family Medicine | DX: O20.9 Hemorrhage in early pregnancy, unspecified (principal) | CPT/HCPCS: 36415; 84702 ==

== ENCOUNTER → 2021-05-28 | Outpatient (CLI) | payer OTHER | LOC: SPEC 13:42 | PROVIDERS: ATTEND Registered Nurse | DX: Z34.91 Encounter for supervision of normal pregnancy, unspecified, first trimester (principal); Z3A.08 8 weeks gestation of pregnancy | CPT/HCPCS: 87086; 87491; 87591 ==

== ENCOUNTER → 2021-06-17 | Outpatient (CLI) | payer OTHER ==
[2021-06-17 15:26] LABS: BASO # 0.1 x10^3/uL (0.0-0.2); BASO % 1 % (0-3); EOS # 0.1 x10^3/uL (0.0-0.7); EOS % 1 % (0-3); HEMATOCRIT 30.3 % (36.0-47.0); HEMOGLOBIN 9.2 g/dL (12.0-15.5); LYMPH # 2.2 x10^3/uL (1.0-4.8); LYMPH % 25 % (24-48); MEAN CORPUSCULAR HEMOGLOBIN 19 pg (25-35); MEAN CORPUSCULAR HGB CONC 31 g/dL (31-37); MEAN CORPUSCULAR VOLUME 62 fL (79-100); MONO # 0.6 x10^3/uL (0.0-1.1); MONO % 6 % (0-9); NEUT # 6.1 x10^3/uL (1.8-7.7); NEUT % 67 % (31-73); PLATELET COUNT 235 x10^3/uL (140-400); RED CELL DISTRIBUTION WIDTH 18.6 % (11.5-14.5); WHITE BLOOD COUNT 9.1 x10^3/uL (4.0-11.0)
[2021-06-17 16:40] LABS: ANISOCYTOSIS SLIGHT; HYPOCHROMIA MARKED; MICROCYTOSIS MARKED; OVALOCYTES FEW; PLT ESTIMATE ADEQUATE (ADEQUATE); POIKILOCYTOSIS SLIGHT; TEAR DROP CELLS OCC
[2021-06-17 16:41] LABS: SCHISTOCYTES OCC
== END ==
LOC: LAB 14:57
PROVIDERS: ATTEND Family Medicine
DX: Z32.00 Encounter for pregnancy test, result unknown (principal)
CPT/HCPCS: 36415; 85025; 86592; 86703; 86803; 86900; 86901; 87340

== ENCOUNTER 2021-06-22 17:18 | Emergency (ER) | payer OTHER ==
[~2021-06-22] VITALS: Ht 172.7 cm; Wt 110.2 kg
[2021-06-22 17:55] LABS: U PREG PATIENT POSITIVE (NEG)
[2021-06-22 17:56] LABS: BILIRUBIN,URINE NEGATIVE (NEG); CLARITY,URINE HAZY; COLOR,URINE YELLOW; NITRITE,URINE NEGATIVE (NEG); PH,URINE 6.5 (<5.0-8.0); PROTEIN,URINE NEGATIVE (NEG-TRACE); UROBILINOGEN,URINE 0.2 mg/dL (0.2 mg/dL)
[2021-06-22 17:58] LABS: BACTERIA,URINE FEW /HPF (0-FEW); RBC,URINE OCC /HPF (0-2)
[2021-06-22 18:26] LABS: BASO % 0 % (0-3); EOS # 0.1 x10^3/uL (0.0-0.7); EOS % 1 % (0-3); HEMATOCRIT 31.1 % (36.0-47.0); HEMOGLOBIN 9.3 g/dL (12.0-15.5); LYMPH # 2.9 x10^3/uL (1.0-4.8); LYMPH % 30 % (24-48); MEAN CORPUSCULAR HEMOGLOBIN 19 pg (25-35); MEAN CORPUSCULAR HGB CONC 30 g/dL (31-37); MEAN CORPUSCULAR VOLUME 62 fL (79-100); MONO # 0.7 x10^3/uL (0.0-1.1); MONO % 7 % (0-9); NEUT # 5.8 x10^3/uL (1.8-7.7); NEUT % 61 % (31-73); PLATELET COUNT 218 x10^3/uL (140-400); RED BLOOD COUNT 5.02 x10^6/uL (3.50-5.40); RED CELL DISTRIBUTION WIDTH 18.6 % (11.5-14.5); WHITE BLOOD COUNT 9.6 x10^3/uL (4.0-11.0)
[2021-06-22 18:33] LABS: CALCIUM 8.4 mg/dL (8.5-10.1); CREATININE 0.6 mg/dL (0.6-1.0); POTASSIUM 3.4 mmol/L (3.5-5.1)
[2021-06-22 18:39] LABS: ALBUMIN 3.7 g/dL (3.4-5.0); ALBUMIN/GLOBULIN RATIO 0.8 (1.0-1.7); TOTAL BILIRUBIN 0.3 mg/dL (0.2-1.0); TOTAL PROTEIN 8.3 g/dL (6.4-8.2)
--- NOTE | 2021-06-22 18:55 | RAD ---
Exam: Chest one view INDICATION: Dyspnea on exertion TECHNIQUE: Frontal view of the chest Comparisons: None FINDINGS: The cardiomediastinal silhouette and pulmonary vessels are within normal limits. The lung and pleural spaces are clear. IMPRESSION: No acute cardiopulmonary process. Electronically signed by: Jenny Reid MD (06/22/2021 6:53 PM) LOLITA
[2021-06-22 19:02] LABS: MICROCYTOSIS SLIGHT; OVALOCYTES OCC; PLT ESTIMATE ADEQUATE (ADEQUATE); POLYCHROMASIA SLIGHT
--- NOTE | 2021-06-22 19:08 | RAD ---
Exam: Bilateral lower extremity venous duplex study INDICATION: Leg swelling TECHNIQUE: Using a combination of real-time ultrasound imaging and color-flow and pulse Doppler imagi ng techniques along with graded compression and augmentation, duplex evaluation of the deep venous sy stems of bilateral lower extremity was performed. Multiple images were obtained. Findings: There is no sonographic evidence for deep venous thrombosis involving the visualized deep venous stru ctures of the bilateral lower extremity. IMPRESSION: No acute DVT in the bilateral lower extremities. Electronically signed by: Jenny Reid MD (06/22/2021 7:06 PM) LOLITA
[2021-06-22] MEDS ORDERED: IOHEXOL 350 MG/ML 100 ML VIAL. IV ONE (19:45)
--- NOTE | 2021-06-22 19:53 | PHYS DOC ---
Past Medical History Past Medical History: Anxiety, Depression Past Surgical History: Cholecystectomy, Tonsillectomy Additional Past Surgical Histo: UMBILICAL HERNIA, LEFT FOOT HARDWARE, club feet correction Smoking Status: Never Smoker Alcohol Use: None Drug Use: None General Adult EDM: Chief Complaint: SHORTNESS OF BREATH HPI: HPI: Patient is a 26-year-old female 3 para 1 presents to the emergency department complaining of shortness of breath since this past Monday. Patient reports first without problems full-term vaginal delivery, second ended at 7 weeks gestation spontaneous miscarriage, reports LMP April 02 2021 with an EDC of February 03, 2022 patient is 11 weeks 5 days per intrauterine ultrasound per her report from TRAFFIC COORDINATOR specialist Dr. Schroeder. Patient reports she sees Etta De Leon who is Dr. [facility] bus and trolley dispatcher. Patient reports she was sitting when she noticed the shortness of breath, reports shortness of breath is all the time however increases when she gets up and moves around such as walking to the bathroom or walking outside. Patient denies recent fever or chills, denies cough, chest or nasal congestion, denies chest pains, chest palpitations. Patient denies abdominal discomfort, nausea, vomiting, or diarrhea. Patient denies dizziness, syncopal or near syncopal episodes. Patient denies increased urinary frequency, urinary pressure, urinary burning or other dysuria or hematuria. Patient denies pelvic discomfort, pelvic cramping, or vaginal bleeding. Patient denies rashes or lesions to her vagina, denies STI concerns. Patient denies history of cigarette smoking, does not drink alcohol, denies a history of illicit drug use or IV drug abuse. Patient denies other physical complaints or physical concerns. Review of Systems: Review of Systems: 14 body systems of review of systems have been reviewed. See HPI for pertinent positives and negative responses, otherwise all other systems are negative, nonpertinent or noncontributory. Constitutional: Negative except as outlined in HPI above. Skin: Negative except as outlined in HPI above. Eyes: Negative except as outlined in HPI above. HENT: Negative except as outlined in HPI above. Respiratory: Negative except as outlined in HPI above. Cardiovascular: Negative except as outlined in HPI above. GI: Negative except as outlined in HPI above. : Negative except as outlined in HPI above. Musculoskeletal: Negative except as outlined in HPI above. Integument: Negative except as outlined in HPI above. Neurologic: Negative except as outlined in HPI above. Endocrine: Negative except as outlined in HPI above. Lymphatic: Negative except as outlined in HPI above. Psychiatric: Negative except as outlined in HPI above. Heart Score: C/O Chest Pain: No Risk Factors: Risk Factors: DM, Current or recent (<one month) smoker, HTN, HLP, family history of CAD, obesity. Risk Scores: Score 0 - 3: 2.5% MACE over next 6 weeks - Discharge Home Score 4 - 6: 20.3% MACE over next 6 weeks - Admit for Clinical Observation Score 7 - 10: 72.7% MACE over next 6 weeks - Early Invasive Strategies Allergies: Allergies: Allergies Coded Allergies Type Severity Reaction Last Updated Verified No Known Drug Allergies 06/22/21 No Physical Exam: PE: Constitutional: Well developed, well nourished, no acute distress, non-toxic appearance. 26-year-old female in no apparent distress. HENT: Normocephalic, atraumatic. Bilateral TMs within normal limits, no lymphadenopathy of the head or neck appreciated, oropharynx moist, pink, no deep tissue infectious process appreciated, patient speaking in normal voice tones. Eyes: Conjunctiva normal, no discharge. Neck: Normal range of motion, no stridor. No nuchal rigidity, no meningeal signs. Cardiovascular: No cyanosis appreciated, distal cap refill less than 2 seconds. Heart sounds S1-S2 to auscultation, regular rate and rhythm. Lungs & Thorax: Patient is in no respiratory distress, no audible adventitious lung sounds appreciated. Lung sounds are clear to auscultation all lung guzman, normal work of breathing. Abdomen: Nontender, no abnormalities noted. Skin: Warm, dry, no erythema, no rash. Back: No tenderness, no deformities. Extremities: No tenderness, no cyanosis, no clubbing, ROM intact, no edema. No peripheral edema appreciated, negative Homans' sign bilateral lower extremities, 2+ dorsalis pedis pulses equal bilaterally, distal cap refill less than 2 seconds all 4 extremities. 2+ radial pulses bilateral upper extremities. Neurologic: Alert and oriented X 3, normal motor function, normal sensory function, no focal deficits noted. Psychologic: Affect normal, judgement normal, mood normal. Current Patient Data: Labs: Laboratory Tests Test 06/22/21 17:30 06/22/21 17:42 Urine Collection Type Unknown Urine Color Yellow Urine Clarity Hazy Urine pH 6.5 (<5.0-8.0) Urine Specific [place] 1.020 (1.000-1.030) Urine Protein Negative mg/dL (NEG-TRACE) Urine Glucose (UA) Negative mg/dL (NEG) Urine Ketones (Stick) Negative mg/dL (NEG) Urine Blood Negative (NEG) Urine Nitrite Negative (NEG) Urine Bilirubin Negative (NEG) Urine Urobilinogen Dipstick 0.2 mg/dL (0.2 mg/dL) Urine Leukocyte Esterase Moderate (NEG) Urine RBC Occ /HPF (0-2) Urine WBC 1-4 /HPF (0-4) Urine Squamous Epithelial Cells Mod /LPF Urine Bacteria Few /HPF (0-FEW) Urine Mucus Mod /LPF Urine Test Positive (NEG) White Blood Count 9.6 x10^3/uL (4.0-11.0) Red Blood Count 5.02 x10^6/uL (3.50-5.40) Hemoglobin 9.3 g/dL (12.0-15.5) L Hematocrit 31.1 % (36.0-47.0) L Mean Corpuscular Volume 62 fL (79-100) L Mean Corpuscular Hemoglobin 19 pg (25-35) L Mean Corpuscular Hemoglobin Concent 30 g/dL (31-37) L Red Cell Distribution Width 18.6 % (11.5-14.5) H Platelet Count 218 x10^3/uL (140-400) Neutrophils (%) (Auto) 61 % (31-73) Lymphocytes (%) (Auto) 30 % (24-48) Monocytes (%) (Auto) 7 % (0-9) Eosinophils (%) (Auto) 1 % (0-3) Basophils (%) (Auto) 0 % (0-3) Neutrophils # (Auto) 5.8 x10^3/uL (1.8-7.7) Lymphocytes # (Auto) 2.9 x10^3/uL (1.0-4.8) Monocytes # (Auto) 0.7 x10^3/uL (0.0-1.1) Eosinophils # (Auto) 0.1 x10^3/uL (0.0-0.7) Basophils # (Auto) 0.0 x10^3/uL (0.0-0.2) Platelet Estimate Adequate (ADEQUATE) Large Platelets Occ Polychromasia Slight Microcytosis Slight Macrocytosis Slight Ovalocytes Occ Maternal Serum HCG Beta Subunit 05014 mIU/mL (0-5) H Sodium Level 138 mmol/L (136-145) Potassium Level 3.4 mmol/L (3.5-5.1) L Chloride Level 102 mmol/L (98-107) Carbon Dioxide Level 22 mmol/L (21-32) Anion Gap 14 (6-14) Blood Urea Nitrogen 7 mg/dL (7-20) Creatinine 0.6 mg/dL (0.6-1.0) Estimated GFR (Cockcroft-Gault) 119.0 BUN/Creatinine Ratio 12 (6-20) Glucose Level 89 mg/dL (70-99) Calcium Level 8.4 mg/dL (8.5-10.1) L Total Bilirubin 0.3 mg/dL (0.2-1.0) Aspartate Amino Transferase (AST) 23 U/L (15-37) Alanine Aminotransferase (ALT) 36 U/L (14-59) Alkaline Phosphatase 74 U/L (46-116) Troponin I High Sensitivity 7 ng/L (4-50) Total Protein 8.3 g/dL (6.4-8.2) H Albumin 3.7 g/dL (3.4-5.0) Albumin/Globulin Ratio 0.8 (1.0-1.7) L Laboratory Tests 06/22/21 17:42 Laboratory Tests 06/22/21 17:42 Vital Signs: Vital Signs Date Time Temp Pulse Resp B/P (MAP) Pulse Ox O2 Delivery O2 Flow Rate FiO2 06/22/21 17:26 98.1 86 18 139/80 (99) 100 Room Air 98.1 EKG: EKG: EKG performed at 1906 by ED nursing staff shows a normal sinus rhythm without ectopy, heart rate 82 bpm, NC interval point 182, QTc interval 0.435, no acute STEMI, no ACS, no acute ischemia appreciated, EKG interpreted by ED attending physician Dr. Negron. Radiology/Procedures: Radiology/Procedures: REASON: 11 weeks , dyspnea on exertion,pain PROCEDURE: VENOUS LOWER EXT BILATERAL Exam: Bilateral lower extremity venous duplex study INDICATION: Leg swelling TECHNIQUE: Using a combination of real-time ultrasound imaging and color-flow and pulse Doppler imaging techniques along with graded compression and augmentation, duplex evaluation of the deep venous systems of bilateral lower extremity was performed. Multiple images were obtained. Findings: There is no sonographic evidence for deep venous thrombosis involving the visualized deep venous structures of the bilateral lower extremity. IMPRESSION: No acute DVT in the bilateral lower extremities. Electronically signed by: Jenny Reid MD (06/22/2021 7:06 PM) [facility] STAT[facility]: REG ER ORD. PHYSICIAN: FAUSTINO PERRIN APRN REASON: 11 weeks , dyspnea on exertion PROCEDURE: CHEST AP ONLY Exam: Chest one view INDICATION: Dyspnea on exertion TECHNIQUE: Frontal view of the chest Comparisons: None FINDINGS: The cardiomediastinal silhouette and pulmonary vessels are within normal limits. The lung and pleural spaces are clear. IMPRESSION: No acute cardiopulmonary process. Electronically signed by: Jenny Reid MD (06/22/2021 6:53 PM) [facility] STATUS: REG ER ORD. PHYSICIAN: FAUSTINO PERRIN APRN REASON: 11 weeks , short of breath, PE study PROCEDURE: CT ANGIOGRAPHY CHEST Exam: CT of chest with contrast INDICATION: 11 weeks , shortness of breath TECHNIQUE: Sequential axial images through the chest obtained following the administration of 60 mL of Isovue-370 IV contrast. Sagittal and coronal reformatted images were reconstructed from the axial data and reviewed. 3-D reformatted images were reconstructed from the axial data and reviewed. Exposure: One or more of the following in the visualized dose reduction techniques were utilized for this examination: 1. Automated exposure control 2. Adjustment of the MA and/or KV according to patient size 3. Use of iterative of reconstructive technique Comparisons: Chest x-ray same day FINDINGS: Visualized portions of the thyroid are unremarkable. No enlarged mediastinal lymph nodes are identified. Heart size is normal. No pericardial effusion. Thoracic aorta has a normal course and caliber. Pulmonary artery is not enlarged. No pulmonary embolus identified. Airways are patent. No consolidation or pneumothorax. No suspicious lung nodules. No pleural effusion or thickening. Visualized upper abdomen is unremarkable. No suspicious osseous lesions or acute fractures. IMPRESSION: Evaluation for pulmonary embolus is limited secondary to contrast bolus timing. No pulmonary embolus identified within the main, lobar or proximal segmental pulmonary arteries. Electronically signed by: Jenny Reid MD (06/22/2021 8:29 PM) [facility] Course & Med Decision Making: Course & Med Decision Making Pertinent Labs and Imaging studies reviewed. (See chart for details) 26-year-old female, vital signs reviewed, presents emergency department concerning shortness of breath since this past Monday. Physical examination is unremarkable, physical symptoms concerning for pulmonary emboli, patient does not have history of pulmonary embolus or family history of blood clots, will order bilateral lower extremity venous duplex, CBC, CMP, urinalysis assay, test, beta hCG. Chest x-ray, EKG, troponin I. The patient's labs serum labs are unremarkable, patient's vital signs are within normal limits, there is no evidence of endorgan damage, the venous Doppler study negative for VTE, will order CT angio chest to rule out pulmonary emboli, the patient's urine suggestive of urinary tract infection, the patient is EKG is unremarkable, troponin I high-sensitivity is unremarkable and within normal limits, patient's chest x-ray unremarkable. Discussed with patient abnormal urinalysis, will start Keflex regimen, reviewed antibiotic and side effects with patient, patient is amenable to this plan. Patient CT angio chest negative for acute process, negative for pulmonary emboli. Discussed findings with patient, discussed with patient all labs and ED work-up, recommended strict follow-up with TRAFFIC COORDINATOR care or primary care call tomorrow for the soonest appointment, reviewed return to ER precautions and concerns, patient gave verbal understanding of and is amenable to ED discharge planning Dragon Disclaimer: Dragon Disclaimer: This electronic medical record was generated, in whole or in part, using a voice recognition dictation system. Departure Departure Impression: Primary Impression: Urinary tract infection during Qualified Codes: O23.41 - Unspecified infection of urinary tract in , first trimester Additional Impression: Shortness of breath during Disposition: 01 HOME / SELF CARE / HOMELESS Condition: GOOD Referrals: MAEVE GARCIA MD (PCP) Patient Instructions: - Urinary Tract Infection, Shortness of Breath Additional Instructions: You were seen today in the emergency department for shortness of breath. An extensive pulmonary study was performed, there were no signs of blood clots in your lower extremities per bilateral lower extremity Doppler, there were no concerning signs of pulmonary infection or pulmonary embolus per chest x-ray and CT angiography of the chest. Your serum lab work is within normal limits. Please let your TRAFFIC COORDINATOR specialist know your beta hCG level is 69,830. As we discussed your urine is infected, you were started on an antibiotic today in the emergency department, I have sent the remaining dosing to your pharmacy in [facility], please take as directed until completed, please follow-up with your TRAFFIC COORDINATOR specialist to have your urine rechecked to ensure the infection is resolving. Please return to the emergency department for worsening symptoms or other concerns. It is very important that you talk with your TRAFFIC COORDINATOR specialist of your ongoing shortness of breath during . Thank you for visiting our Emergency Department. It was a pleasure taking care of you today in the emergency department and we appreciate you trusting us with your care. If any additional problems come up don't hesitate to return to visit us. Please follow up with your primary care provider so they can plan additional care if needed and know about the problem that you had. If symptoms worsen come back to the Emergency Department. Any concerning symptoms that start such as chest pain, shortness of air, weakness or numbness on one side of the body, running high fevers or any other concerning symptoms return to the ER. EMERGENCY DEPARTMENT GENERAL DISCHARGE INSTRUCTIONS Thank you for coming to [facility] Emergency Department (ED) today and trusting us with you care. We trust that you had a positive experience in our Emergency Department. If you wish to speak to the department management, you may call the Director at [phone]. YOUR FOLLOW UP INSTRUCTIONS ARE FOLLOWS: 1. Do you have a private Doctor? If you do not have a private doctor, please ask for a resource list of physicians or clinics that may be able to assist you with follow up care. 2. The Emergency Physicain has interpreted your x-rays. The X-Ray specialist will also review them. If there is a change in the findings, you will be notified in 48 hours when at all possible. 3. A lab test or culture has been done, your results will be reviewed and you will be notified if you need a change in treatment. ADDITIONAL INSTRUCTIONS AND INFORMATION: 1. Your care today has been supervised by a physician who is specially trained in emergency care. Many problems require more than one evaluation for a complete diagnosis and treatment. We recommend that you schedule your follow up appointment as recommended to ensure complete treatment of you illness or injury. If you are unable to obtain follow up care and continue to have a problem, or if your condition worsens, we recommend that you return to the ED. 2. We are not able to safely determine your condition over the phone nor are we able to give sound medical advice over the phone. For these safety reasons, if you call for medical advice we will ask you to come to the ED for further evaluation. 3. If you have any questions regarding these discharge instructions please call the ED at [phone]. SAFETY INFORMATION: In the interest of safety, wellness, and injury prevention; we encourage you to wear your sealbelt, if you smoke; quite smoking, and we encourage family to use a protective helmet for bicycling and other sporting events that present an increased risk for head injury. IF YOUR SYMPTOMS WORSEN OR NEW SYMPTOMS DEVELOP, OR YOU HAVE CONCERNS ABOUT YOUR CONDITION; OR IF YOUR CONDITION WORSENS WHILE YOU ARE WAITING FOR YOUR FOLLOW UP APPOINTMENT; EITHER CONTACT YOUR PRIMARY CARE DOCTOR, THE PHYSICIAN WHOSE NAME AND NUMBER YOU WERE GIVEN, OR RETURN TO THE ED IMMEDIATELY. Scripts Cephalexin (CEPHALEXIN) 500 Mg Tablet 1 TAB PO TID for uti for 7 Days, #21 TAB 0 Refills Prov: FAUSTINO PERRIN APRN 06/22/21 FAUSTINO PERRIN APRN Jun 22, 2021 19:53
[2021-06-22] MEDS ORDERED: CONTRAST GIVEN. MC PRN (20:00)
--- NOTE | 2021-06-22 20:31 | RAD ---
Exam: CT of chest with contrast INDICATION: 11 weeks , shortness of breath TECHNIQUE: Sequential axial images through the chest obtained following the administration of 60 mL o f Isovue-370 IV contrast. Sagittal and coronal reformatted images were reconstructed from the axial d liane and reviewed. 3-D reformatted images were reconstructed from the axial data and reviewed. Exposure: One or more of the following in the visualized dose reduction techniques were utilized for this examination: 1. Automated exposure control 2. Adjustment of the MA and/or KV according to patient size 3. Use of iterative of reconstructive technique Comparisons: Chest x-ray same day FINDINGS: Visualized portions of the thyroid are unremarkable. No enlarged mediastinal lymph nodes are identifi ed. Heart size is normal. No pericardial effusion. Thoracic aorta has a normal course and caliber. Pulmon jeffrey artery is not enlarged. No pulmonary embolus identified. Airways are patent. No consolidation or pneumothorax. No suspicious lung nodules. No pleural effusion or thickening. Visualized upper abdomen is unremarkable. No suspicious osseous lesions or acute fractures. IMPRESSION: Evaluation for pulmonary embolus is limited secondary to contrast bolus timing. No pulmonary embolus identified within the main, lobar or proximal segmental pulmonary arteries. Electronically signed by: Jenny Reid MD (06/22/2021 8:29 PM) [facility]
[2021-06-22] MEDS ORDERED: CEPH500T PO (20:53)
[2021-06-22] MEDS ORDERED: CEPHALEXIN 250 MG CAPSULE. PO STA (20:53)
[2021-06-22 21:00] VITALS: BP 149/72
--- NOTE | 2021-06-23 06:04 | EKG ---
[facility] [address] [place] [address] Test Date: 2021-06-22 Test Time: 19:06:48 Pat Name: EARNEST ROWE Department: Room: Gender: F Admissions Evaluator: : 1995 Requested By: FAUSTINO PERRIN Order Number: [id number] Reading MD: Measurements Intervals [place] [facility] Rate: 82 P: 31 NH: 182 QRS: 4 QRSD: 84 T: 24 QT: 370 QTc: 435 Interpretive Statements SINUS RHYTHM NORMAL ECG RI6.02 No previous ECG available for comparison
== END 2021-06-22 21:07 | disposition home or self-care (01) ==
LOC: ER 17:18
DX: O23.41 Unspecified infection of urinary tract in pregnancy, first trimester (principal); R06.02 Shortness of breath; Z3A.11 11 weeks gestation of pregnancy
CPT/HCPCS: 36415; 71045; 71275; 80053; 81001; 81025; 84484; 84702; 85025; 87086; 93005; 93970; 99285; Q9967

== ENCOUNTER → 2021-07-01 | Outpatient (CLI) | payer OTHER ==
[2021-06-22 21:00] VITALS: BP 149/72
[~2021-07-01] MED LIST changes: +CEPH500T PO
== END ==
LOC: LAB 08:17
PROVIDERS: ATTEND Physician Assistant
DX: Z31.430 Encounter of female for testing for genetic disease carrier status for procreative management (principal); Z34.00 Encounter for supervision of normal first pregnancy, unspecified trimester; Z36.0 Encounter for antenatal screening for chromosomal anomalies
CPT/HCPCS: 36415